=== PATIENT | male | born 1950 | race Caucasian/White ===

== ENCOUNTER 2019-09-26 10:49 | Emergency (ER) | payer MEDICARE ==
--- NOTE | 2019-09-26 11:35 | ER Document Report ---
ED Medical Screen (RME) - General Chief Complaint: Palpitations Stated Complaint: HEART PALPITATIONS Time Seen by Provider: 09/26/19 11:31 - HPI Notes: 09/26/19 11:34 Patient is a 69-year-old male with history of hypercholesterolemia who presents complaining of having intermittent palpitations chronically, but has become more persistent since yesterday. He otherwise is feeling well. He is able to eat and drink without difficulty. He is urinating normally. Denies any prolonged immobilization, distance travel, recent surgery/trauma, personal cancer history, hormone use, or previous DVT/PE. Denies ELIAS, fever, neck pain, CP, SOB, URI, n/v/d, Abd pain, dysuria, back pain, or rash. I have treated and performed a rapid initial assessment of this patient. A comprehensive ED assessment and evaluation of the patient, analysis of test results and completion of medical decision making process will be conducted by additional ED providers. PHYSICAL EXAMINATION: GENERAL: Well-appearing, well-nourished and in no acute distress. A&Ox4. Answers questions appropriately. LUNGS: Breath sounds clear to auscultation bilaterally and equal. No wheezes rales or rhonchi. HEART: Regular rate and rhythm without murmurs, rubs, gallops. mildly tachycardic--not jaiden (suspect typo at triage when they placed '39') Extremities: No cyanosis, clubbing, or edema b/l. Preet negative bilaterally. No lower extremity asymmetry. NEUROLOGICAL: Normal speech, normal gait. PSYCH: Normal mood, normal affect. - Related Data Allergies/Adverse Reactions: No Known Allergies Allergy (Unverified 09/26/19 11:30) Physical Exam - Vital signs Vitals: Temp Pulse Resp BP Pulse Ox 98.2 F 39 L 20 143/99 H 96 09/26/19 11:27 09/26/19 11:09/26/19 11:09/26/19 11:27 09/26/19 11:27 Course - Vital Signs Vital signs: Temp Pulse Resp BP Pulse Ox 98.2 F 39 L 20 143/99 H 96 09/26/19 11:27 09/26/19 11:27 09/26/19 11:27 09/26/19 11:27 09/26/19 11:27
[2019-09-26] MEDS ORDERED: NORMAL SALINE 1000 ML 1,000 ML IV ONE (11:36)
[2019-09-26 12:07] LABS: APPEARANCE,URINE CLEAR; BILIRUBIN,URINE NEGATIVE (NEGATIVE); COLOR,URINE STRAW; GLUCOSE, URINE NEGATIVE (NEGATIVE); KETONES,URINE NEGATIVE (NEGATIVE); PROTEIN,URINE NEGATIVE (NEGATIVE); URINE SPECIFIC GRAVITY 1.004; UROBILINOGEN,URINE NEGATIVE mg/dL (<2.0)
[2019-09-26 12:10] LABS: ABSOLUTE EOSINOPHILS # (AUTO) 0.1 10^3/uL (0.0-0.6); ABSOLUTE LYMPHOCYTES (AUTO) 1.5 10^3/uL (0.5-4.7); ABSOLUTE MONOCYTES (AUTO) 0.8 10^3/uL (0.1-1.4); ABSOLUTE NEUT (AUTO) 7.2 10^3/uL (1.7-8.2); BASOPHILS % (AUTO) 0.5 % (0-2); EOSINOPHILS % (AUTO) 1.2 % (0-6); HEMATOCRIT 44.5 % (37.9-51.0); HEMOGLOBIN 15.5 g/dL (13.5-17.0); LYMPHOCYTES % (AUTO) 15.9 % (13-45); MEAN CORPUSCULAR HEMOGLOBIN 31.2 pg (27.0-33.4); MEAN CORPUSCULAR HGB CONC 34.7 g/dL (32.0-36.0); MEAN CORPUSCULAR VOLUME 90 fl (80-97); MONOCYTES % (AUTO) 8.3 % (3-13); PLATELET COUNT 185 10^3/uL (150-450); RED BLOOD COUNT 4.96 10^6/uL (4.35-5.55); RED CELL DISTRIBUTION WIDTH 13.6 % (11.5-14.0); SEGMENTED NEUTROPHILS % (AUTO) 74.1 % (42-78); TOTAL CELLS COUNTED % (AUTO) 100 %; WHITE BLOOD COUNT 9.8 10^3/uL (4.0-10.5)
[2019-09-26 12:28] LABS: URINE AMPHETAMINES SCREEN NEGATIVE; URINE BARBITURATES SCREEN NEGATIVE; URINE BENZODIAZEPINES SCREEN NEGATIVE; URINE COCAINE SCREEN NEGATIVE; URINE MARIJUANA (THC) SCREEN NEGATIVE; URINE METHADONE SCREEN NEGATIVE; URINE PHENCYCLIDINE SCREEN NEGATIVE
--- NOTE | 2019-09-26 12:29 | RADIOLOGY REPORT (SQ) ---
EXAM DESCRIPTION: CHEST 2 VIEWS COMPLETED DATE/TIME: 09/26/2019 12:08 pm REASON FOR STUDY: palpitations COMPARISON: None. EXAM PARAMETERS: NUMBER OF VIEWS: Two views. TECHNIQUE: PA and lateral views of the chest were obtained. RADIATION DOSE: NA LIMITATIONS: none FINDINGS: LUNGS AND PLEURA: No consolidation, pleural effusion or pneumothorax. MEDIASTINUM AND HILAR STRUCTURES: No mediastinal or hilar contour abnormality. HEART AND VASCULAR STRUCTURES: The cardiac silhouette and pulmonary vasculature are within normal segundo its. BONES: No acute findings. HARDWARE: None in the chest. OTHER: No other finding. IMPRESSION: No acute cardiopulmonary process. TECHNICAL DOCUMENTATION: JOB ID: [id number] 2010 [employer]- All Rights Reserved Reading location - IP/workstation name: [email or web address]
[2019-09-26 12:34] LABS: ALBUMIN 4.4 g/dL (3.5-5.0); ALKALINE PHOSPHATASE 91 U/L (38-126); ANION GAP 7 (5-19); ASPARTATE AMINO TRANSFERASE 27 U/L (17-59); BILIRUBIN,DIRECT 0.3 mg/dL (0.0-0.4); BILIRUBIN,TOTAL 0.6 mg/dL (0.2-1.3); BLOOD UREA NITROGEN 15 mg/dL (7-20); CALCIUM 9.6 mg/dL (8.4-10.2); CARBON DIOXIDE 30 mmol/L (22-30); CHLORIDE 104 mmol/L (98-107); GLUCOSE 105 mg/dL (75-110); POTASSIUM 4.8 mmol/L (3.6-5.0)
--- NOTE | 2019-09-26 14:04 | ER Document Report ---
ED General - General Chief Complaint: Palpitations Stated Complaint: HEART PALPITATIONS Time Seen by Provider: 09/26/19 11:31 Primary Care Provider: DENNY MARTIN MD [ACTIVE STAFF] - Follow up as needed Mode of Arrival: Ambulatory Information source: Patient Notes: 69-year-old man presents to the emergency department with a complaint of palpitations in his chest. He denies chest pain or shortness of breath notes that he is never had symptoms in the past. TRAVEL OUTSIDE OF THE [place] IN LAST 30 DAYS: No - Related Data Allergies/Adverse Reactions: No Known Allergies Allergy (Unverified 09/26/19 11:30) Past Medical History - Social History Smoking Status: Current Every Day Smoker Family History: Reviewed & Not Pertinent Patient has suicidal ideation: No Patient has homicidal ideation: No - Past Medical History Cardiac Medical History: Reports: Hx Hypertension Review of Systems - Review of Systems Notes: Constitutional: Negative for fever. HENT: Negative for sore throat. Eyes: Negative for visual changes. Cardiovascular: + Palpitations, no chest pain. Respiratory: Negative for shortness of breath. Gastrointestinal: Negative for abdominal pain, vomiting or diarrhea. Genitourinary: Negative for dysuria. Musculoskeletal: Negative for back pain. Skin: Negative for rash. Neurological: Negative for headaches, weakness or numbness. 10 point ROS negative except as marked above and in HPI. Physical Exam - Vital signs Vitals: Temp Pulse Resp BP Pulse Ox 98.2 F 91 20 143/99 H 96 09/26/19 11:27 09/26/19 11:27 09/26/19 11:27 09/26/19 11:27 09/26/19 11:27 - Notes Notes: PHYSICAL EXAMINATION: Physical Exam: General: Well-nourished well-developed in no acute distress HEENT: NC/AT, pupils equal round and reactive to light, MM moist,nares clear, oropharynx clear, airway patent Neck: supple, no adenopathy, no masses. Good range of motion Lungs: clear, no wheezing, no rales no rhonchi CVS: Tachycardic rate and rhythm no murmur gallop or rub Abdomen: Soft, active, nontender, no masses, no hepatosplenomegaly Ext: No edema, clubbing or cyanosis. Neuro: Alert and responsive, moving all 4 extremities on command, cranial nerves intact, no focal findings Skin: Intact no open lesions, no rash PSYCH: Normal mood, normal affect. Course - Re-evaluation Re-evalutation: 09/26/19 14:05 Patient was given a liter of IV normal saline, his rate continues to be in the 108-110 range. Initial EKG revealed a sinus tachycardia with trigeminy, the PVCs have resolved as of this time and presently the patient states he is feeling better. 09/26/19 15:51 Patient was given metoprolol 2.5 mg IV with improvement in the rate down to 75 and a decrease the frequency of PVCs. I have explained to the patient that we will send him home on a low dose of metoprolol and continue the plan to be referred to Dr. Martin for further evaluation and treatment. The patient is in agreement with that plan and will be discharged now. - Vital Signs Vital signs: Temp Pulse Resp BP Pulse Ox 98.2 F 91 14 133/59 H 97 09/26/19 11:27 09/26/19 11:27 09/26/19 16:02 09/26/19 16:02 09/26/19 16:02 - Laboratory Result Diagrams: 09/26/19 11:52 09/26/19 11:52 Laboratory results interpreted by me: 09/26/19 11:52 Urine Blood SMALL H 09/26/19 15:53 I have reviewed laboratory data and used this information for the treatment decisions regarding the patient. - Diagnostic Test Radiology reviewed: Image reviewed, Reports reviewed - Chest x-ray: No acute findings. - EKG Interpretation by [facility] EKG shows normal: Sinus rhythm - Sinus tachycardia with a rate of 111 and ventricular trigeminy. Discharge - Discharge Clinical Impression: Sinus tachycardia, Ventricular trigeminy Condition: Good Disposition: HOME, SELF-CARE Instructions: Beta Blockers ([facility]), Palpitations (Irregular or Rapid Heartrate) ([facility]) Additional Instructions: You were diagnosed with sinus tachycardia and PVCs in the emergency department today, you were given a prescription for metoprolol to be used at home and a referral to Dr. Martin, cardiology for further evaluation and treatment. Please call the office today [phone] to schedule an appointment for tomorrow. If you have further difficulties or symptoms you may return to the emergency department for our reevaluation. Prescriptions: Metoprolol Succinate [Toprol Xl 25 mg Tab.sr] 25 mg PO DAILY #14 tab.sr.24h Referrals: DENNY MARTIN MD [ACTIVE STAFF] - Follow up as needed
[2019-09-26] MEDS ORDERED: METOPROLOL TARTRATE PF/INJ 5 MG/5 ML SDV IV ONE (14:13)
[2019-09-26 15:09] LABS: FREE T4 (FREE THYROXINE) 1.07 ng/dL (0.78-2.19)
[2019-09-26 15:24] LABS: THYROID STIMULATING HORMONE 0.79 uIU/mL (0.47-4.68)
[2019-09-26 16:05] VITALS: BP 133/59
--- NOTE | 2019-09-26 18:10 | EKG REPORT ---
SEVERITY:- ABNORMAL ECG - SINUS TACHYCARDIA VENTRICULAR TRIGEMINY BIATRIAL ABNORMALITIES : Confirmed by: Harriett Jerry MD 26-Sep-2019 18:09:39
== END 2019-09-26 16:15 | disposition home or self-care (01) ==
LOC: ER 10:49
DX: R00.8 Other abnormalities of heart beat (principal); I47.0 Re-entry ventricular arrhythmia; R00.2 Palpitations; F17.200 Nicotine dependence, unspecified, uncomplicated; I10 Essential (primary) hypertension
CPT/HCPCS: 93005; 99285; 96361; 96374; 36415; 84439; 83735; 84443; 85025; 80053; 81001; 84484; 80307; 71046; 93010; J3490; J7030